=== PATIENT | female | born 1980 | race African-American/Black ===

== ENCOUNTER 2017-05-31 15:17 | Emergency (ER) | payer OTHER ==
[2017-05-31 15:42] VITALS: BP 178/103; BMI 25.1
--- NOTE | 2017-05-31 17:05 | ED.ABDFE ---
HPI - PCP Primary Care Physician: CAMPOS SEYMOUR - HPI Comment HPI Comment: pt also with burning on urination - Complaint Chief Complaint:: PT C/O ABD AND BACK PAIN THAT STARTER ON WEDNESDAY.. - Source History Provided: Patient - Mode of arrival Mode of Arrival: Ambulatory - Timing Onset of Chief Complaint: 05/29/17 PMH - PMH Past Medical History: Yes Past Medical History: Hypertension Past Surgical History: Yes Past Surgical History Comment: D AND C IN 2016. - Family History History of Family Medical Conditions: Yes Family Medical History: Diabetes Mellitus, Hypertension - Social History Does patient currently use any type of tobacco product: Yes Have you used tobacco products in the last 12 months: Yes Type of Tobacco Use: Cigarettes How many years tobacco product used: 18 Does any household member use tobacco: No Alcohol Use: Rarely Do you use any recreational Drugs:: No Lives With: Family Lives Where: Home - infectious screening In the last 2 months have you had wt loss of >10#?: NO Have you had fever, night sweats or hemotysis?: No Have you traveled outside the country in the last 6 months?: No Isolation: Standard ROS - Review of Systems Constitutional: negative: Chills, Diaphoresis, Fever, Malaise Eyes: No Symptoms Reported ENTM: No Symptoms Reported Respiratoy: No Symptoms Reported Cardiovascular: No Symptoms Reported Gastrointestinal/Abdominal: Abdominal Pain. negative: Constipation, Diarrhea, Nausea, Vomiting Genitourinary: Dysuria, Pain Neurological: No Symptoms Reported Musculoskeletal: Back Pain (lower back pain) PE - Vital Signs Vitals: Temperature 98.0 F Pulse Rate 75 Respiratory Rate 22 Blood Pressure 178/103 O2 Sat by Pulse Oximetry 99 - General General Appearance: Alert, In No Apparent Distress. negative: Appears Intoxicated, Anxious, Lethargic, In Distress - Head Head Exam: Normal Inspection - Eyes Eye exam: Normal Appearance - ENT ENT Exam: Normal Exam - Respiratory Respiratory Exam: Normal Lung Sounds Bilat Respiratory Exam: Bilateral Clear to Auscultation - Cardiovascular Cardiovascular Exam: Regular Rate, Normal Rhythm. negative: Bradycardia, Tachycardia, Systolic Murmur, Diastolic Murmur - Abdominal Exam Abdominal Exam: Normal Bowel Sounds, Soft, Tenderness (LLQ mild TTP, no guard or rebound). negative: Distention Abdominal Tenderness: LLQ - Back Back Exam: negative: (R) CVA Tenderness, (L) CVA Tenderness - Extremeties Extremities Exam: Normal Inspection, Full ROM - External Exam: Female: Normal External Exam - Neurologic Neurological Exam: Alert, Oriented X3 - Psychiatric Psychiatric Exam: Normal Affect, Normal Mood - Skin Skin Exam: Warm, Dry, Intact ROR - Labs Reviewed Result Diagrams: 05/31/17 17:25 05/31/17 17:25 Laboratory: WBC 7.5 X10^3/uL (3.6-10.0) 05/31/17 17:25 RBC 3.84 X10^6/uL (3.5-5.4) 05/31/17 17:25 Hgb 13.2 g/dL (12.0-16.0) 05/31/17 17: Hct 38.4 % (36.0-47.0) 05/31/17 17: MCV 100.0 fL (80.0-100.0) 05/31/17 17: MCH 34.4 pg (27.0-34.0) H 05/31/17 17: MCHC 34.3 g/dL (33.0-35.0) 05/31/17 17:25 RDW 13.5 % (11.6-16.5) 05/31/17 17: Plt Count 203 X10^3/uL (150.0-450.0) 05/31/17 17:25 MPV 8.8 fL (7.4-11.0) 05/31/17 17:25 Neut % 66.5 % (42.0-75.0) 05/31/17 17: Lymph % 24.8 % (21.0-51.0) 05/31/17 17:25 [place] % 7.3 % (0.0-13.0) 05/31/17 17:25 Eos % 0.6 % (0.9-2.9) L 05/31/17 17:25 Baso % 0.8 % (0.2-1.0) 05/31/17 17:25 Neut # 5.0 x10^3/uL (2.2-4.8) H 05/31/17 17:25 Lymph # 1.9 X10^3/uL (1.3-2.9) 05/31/17 17:25 [place] # 0.5 x10^3/uL (0.3-0.8) 05/31/17 17:25 Eos # 0.0 x10^3/uL (0.0-0.2) 05/31/17 17:25 Baso # 0.1 X10^3/uL (0.0-0.1) 05/31/17 17:25 Absolute Nucleated RBC 0.1 /100WBC 05/31/17 17:25 Sodium 135 mmol/L (136-145) L 05/31/17 17:25 Corrected Sodium TNP 05/31/17 17:25 Potassium 4.0 mmol/L (3.5-5.1) 05/31/17 17:25 Chloride 99 mmol/L (98-107) 05/31/17 17:25 Carbon Dioxide 29.3 mmol/L (21-32) 05/31/17 17:25 BUN 12 mg/dL (7-18) 05/31/17 17:25 Creatinine 0.69 mg/dL (0.55-1.02) 05/31/17 17:25 Est GFR (MDRD) Af Amer > 60 (>60) 05/31/17 17:25 Est GFR (MDRD) Non-Af > 60 (>60) 05/31/17 17:25 Glucose 91 mg/dL (65-99) 05/31/17 17:25 Calcium 9.2 mg/dL (8.5-10.1) 05/31/17 17:25 Corrected Calcium TNP 05/31/17 17:25 Total Bilirubin 0.40 mg/dL (0.2-1.0) 05/31/17 17:25 AST 26 Units/L (15-37) 05/31/17 17:25 ALT 34 Units/L (12-78) 05/31/17 17:25 Alkaline Phosphatase 102 Units/L (46-116) 05/31/17 17:25 Total Protein 7.7 g/dL (6.4-8.2) 05/31/17 17:25 Albumin 3.8 g/dL (3.4-5.0) 05/31/17 17:25 Globulin 3.9 g/dL (2.5-4.5) 05/31/17 17:25 Albumin/Globulin Ratio 1.0 Ratio (1.1-2.1) L 05/31/17 17:25 Lipase 215 Units/L (73-393) 05/31/17 17:25 HCG, Qual Negative <10 mIU/mL 05/31/17 17:25 Specimen Type Clean catch urine 05/31/17 17:11 Urine Color Yellow (YELLOW) 05/31/17 17:11 Urine Appearance Hazy (CLEAR) 05/31/17 17:11 Urine pH 7.0 (5.0 - 8.0) 05/31/17 17:[address] [place] 1.005 (1.000-1.030) 05/31/17 17:11 Urine Protein Negative (NEGATIVE) 05/31/17 17:11 Urine Glucose (UA) Negative (NEGATIVE) 05/31/17 17:11 Urine Ketones Negative (NEGATIVE) 05/31/17 17:11 Urine Occult Blood Negative (NEGATIVE) 05/31/17 17:11 Urine Nitrite Negative (NEGATIVE) 05/31/17 17:11 Urine Bilirubin Negative (NEGATIVE) 05/31/17 17:11 Urine Urobilinogen 1+ (NORMAL) 05/31/17 17:11 Ur Leukocyte Esterase 3+ (NEGATIVE) 05/31/17 17:11 Urine RBC 0-2 /HPF (NEGATIVE) 05/31/17 17:11 Urine WBC 3-5 /HPF (NEGATIVE) 05/31/17 17:11 Ur Squamous Epith Cells Few /HPF (NEGATIVE) 05/31/17 17:11 Urine Bacteria Trace /HPF (NEGATIVE) 05/31/17 17:11 Ur Culture Indicated? No/not indicated 05/31/17 17:11 - Other Results Comments: UA + for UTI, nothing else acute. - Diagnosis Discharge Problem: UTI (urinary tract infection) - Discharge Plan Disposition: HOME, SELF-CARE Condition: Stable Prescriptions: Amoxicillin/Potassium Clav [Augmentin 875-125 Tablet] 1 tab PO Q12H 7 Days #14 tab - Follow ups/Referrals Follow ups/Referrals: NFD,None [Primary Care Provider] - 3 days - Instructions
[2017-05-31 17:31] LABS: BASOPHILS # (AUTO) 0.1 X10^3/uL (0.0-0.1); BASOPHILS % (AUTO) 0.8 % (0.2-1.0); EOSINOPHILS % (AUTO) 0.6 % (0.9-2.9); HEMATOCRIT 38.4 % (36.0-47.0); HEMOGLOBIN 13.2 g/dL (12.0-16.0); LYMPHOCYTES # (AUTO) 1.9 X10^3/uL (1.3-2.9); LYMPHOCYTES % (AUTO) 24.8 % (21.0-51.0); MEAN CORPUSCULAR HEMOGLOBIN 34.4 pg (27.0-34.0); MEAN CORPUSCULAR HGB CONC 34.3 g/dL (33.0-35.0); MEAN PLATELET VOLUME 8.8 fL (7.4-11.0); MONOCYTES # (AUTO) 0.5 x10^3/uL (0.3-0.8); MONOCYTES % (AUTO) 7.3 % (0.0-13.0); NEUTROPHILS % (AUTO) 66.5 % (42.0-75.0); PLATELET COUNT 203 X10^3/uL (150.0-450.0); RED BLOOD COUNT 3.84 X10^6/uL (3.5-5.4); RED CELL DISTRIBUTION WIDTH 13.5 % (11.6-16.5); WHITE BLOOD COUNT 7.5 X10^3/uL (3.6-10.0)
[2017-05-31 17:33] LABS: BILIRUBIN,URINE NEGATIVE (NEGATIVE); BLOOD/HEMOGLOBIN,URINE NEGATIVE (NEGATIVE); GLUCOSE, URINE NEGATIVE (NEGATIVE); KETONES,URINE NEGATIVE (NEGATIVE); LEUKOCYTE ESTERASE ,URINE 3+ (NEGATIVE); NITRITES,URINE NEGATIVE (NEGATIVE); PROTEIN,URINE NEGATIVE (NEGATIVE); UROBILINOGEN,URINE 1+ (NORMAL)
[2017-05-31 17:44] LABS: ALANINE AMINOTRANSFERASE 34 Units/L (12-78); ALBUMIN 3.8 g/dL (3.4-5.0); ALKALINE PHOSPHATASE 102 Units/L (46-116); ASPARTATE AMINO TRANSFERASE 26 Units/L (15-37); BLOOD UREA NITROGEN 12 mg/dL (7-18); CALCIUM 9.2 mg/dL (8.5-10.1); CARBON DIOXIDE 29.3 mmol/L (21-32); CHLORIDE 99 mmol/L (98-107); CREATININE 0.69 mg/dL (0.55-1.02); LIPASE 215 Units/L (73-393); SERUM PREGNANCY TEST, QUAL NEGATIVE <10 mIU/mL; SODIUM 135 mmol/L (136-145); TOTAL PROTEIN 7.7 g/dL (6.4-8.2); eGFR BLACK RACES > 60 (>60); eGFR NON BLACK RACES > 60 (>60)
[2017-05-31 17:47] LABS: APPEARANCE,URINE HAZY (CLEAR); COLOR,URINE YELLOW (YELLOW); RBC,URINE 0-2 /HPF (NEGATIVE); SQUAMOUS EPITHELIAL CELL,UR FEW /HPF (NEGATIVE)
[2017-05-31 17:48] LABS: BACTERIA,URINE TRACE /HPF (NEGATIVE)
[2017-05-31] MEDS ORDERED: ROCEPHIN VIAL 1 GM IM ONE (17:58)
[2017-05-31] MEDS ORDERED: ROCEPHIN VIAL 1 GM ONE (18:13)
[2017-05-31] MEDS ORDERED: XYLOCAINE 1 % (PLAIN) ONE (18:13)
== END 2017-05-31 18:21 | disposition home or self-care (01) ==
LOC: ER 16:02
DX: N39.0 Urinary tract infection, site not specified (principal)
CPT/HCPCS: 36415; 80053; 81001; 83690; 84703; 85025; 96372; 99282; J0696; J2001